=== PATIENT | female | born 1980 | race Hispanic/Latino ===

== ENCOUNTER 2024-11-13 18:34 | Emergency (ER) | payer BC ==
[~2024-11-13] VITALS: Ht 157.5 cm; Wt 107.0 kg
[2024-11-13] MEDS ORDERED: ACYC-138 PO (19:27)
--- NOTE | 2024-11-13 19:28 | ERN ---
ED Note History of Present Illness Stated Complaint: DROOPY EYE Chief Complaint: Eye Problems Time Seen by MD: 18:43 Time Seen by Midlevel: 18:43 Dictation: 44-year-old female presents to the emergency department due to report of having a small droop of the right eye that was noted today at 8:00 a.m.. Patient states that she went to PCP and was referred to the emergency department for evaluation. At this time, she denies having any changes in vision, nausea, generalized weakness, or headache. She is noted to be ambulatory from the waiting area, to the triage room and the area examination with no neurological deficits. Upon initial evaluation, the patient presents in no acute distress. Emergency Care PROGRAM AIDE: None Past Medical History Past Medical History: Hypothyroid Surgical History: Other Surgical History Other: TUBAL PSYCH History: no pertinent psych hx Social History: Lives with family RN Note Reviewed/Agreed w/PFSH: Yes Review of System Dictation See HPI. Initial Vital Sign VS Vital Signs Date Time Temp Pulse Resp B/P (MAP) Pulse Ox O2 Delivery O2 Flow Rate FiO2 11/13/24 18:44 99.1 80 20 171/98 99 Room Air 0 Physical Exam Dictation General: awake, alert, NAD Head/Face: Normocephalic, atraumatic Eyes: PERRL, EOMI ENT: Oral mucosa moist Neck: Trachea midline, supple Cardiovascular: RRR, no edema Respiratory: Symmetrical, non-labored Abdomen: Soft, non-tender, non-distended, no guarding. Skin: Warm, dry, good turgor, no rash MS/Extremity: Pulses equal, no cyanosis, neurovascular intact, FROM Neuro: COAx4, GCS 15, steady gait, Psych: Normal behavior, mood, and affect normal ED Course ED Course Vital Signs Date Time Temp Pulse Resp B/P (MAP) Pulse Ox O2 Delivery O2 Flow Rate FiO2 11/13/24 18:44 99.1 80 20 171/98 99 Room Air 0 Medical Decision Making MDM MDM: Differential diagnosis: García's palsy, anxiety. Rationale: Tests considered and ordered secondary to shared decision making include: Previous outside records reviewed: Old ER visits. Risk of complication and/or morbidity or mortality of patient management: None Medications-Per medication reconciliation Need for hospitalization: Patient does not meet criteria for hospitalization. Need for emergency major/minor surgery: No There are no social concerns with this patient. Prescription drug management Prescriptions will include symptomatic care Patient's prior external medical records from other ER visits were reviewed by me as indicated. Prior testing and results from previous visits were reviewed. Prior tests were taken into account with medical decision making and resource utilization, independent historian/historians were used to obtain complete medical history. I independently interpreted the test that were performed, results were reviewed by me and considered findings on radiology if ordered. Medical management and examination interpretation discussions were had by me with other qualified healthcare professionals as indicated for the patient's c are. NIH STROKE SCALE: NIH STROKE SCALE Response (Comments) Value Level of Consciousness Alert 0 Ask patient month and their age Answers both correct 0 Command to open eyes, make fist and let go Obeys both correct 0 Best gaze (horizontal eye movement) Normal 0 Visual Field Testing No Visual Field Loss 0 Facial Paresis Minor Paralysis 1 Motor Function - Left Arm Normal 0 Motor Function - Right Arm Normal 0 Motor Function - Left Leg Normal 0 Motor Function - Right Leg Normal 0 Limb Ataxia No Ataxia 0 Sensory-pin prick to arms, legs, trunk and face Normal 0 Best Language (describe picture, name items and read) No Aphasia 0 Dysarthria (read several words) Normal Articulation 0 Extinction and Inattention Normal 0 Total 1 DX & DISP Disposition: Discharge Departure Impression: Primary Impression: García's palsy Condition: Stable Scripts Acyclovir (Acyclovir) 800 Mg Tablet 1 TAB PO 5XDAY for 7 Days, #35 TAB 0 Refills Prov: LOY BRANDT 11/13/24 Referrals: SELF,REFERRAL (PCP) Time of Disposition: 19:27 LOY BRANDT Nov 13, 2024 19:27
[2024-11-13 19:39] VITALS: BP 158/84; PULSE 78; RESP 18; TEMP 98.9; O2SAT 98
== END 2024-11-13 19:41 | disposition home or self-care (01) ==
LOC: EDH 18:34
DX: G51.0 Bell's palsy (principal); E03.9 Hypothyroidism, unspecified
CPT/HCPCS: 99283